=== PATIENT | female | born 1960 | race Caucasian/White ===

== ENCOUNTER → 2019-07-27 | Outpatient (CLI) | payer OTHER ==
[~2019-07-27] MED LIST: ATOR40TA PO; BACL10TA PO; FURO40TA4 PO; PNT40TEC PO; POTA10CA43 PO; SPIR50TA27 PO
--- NOTE | 2019-07-27 11:18 | Diagnostic Imaging Report ---
PROCEDURE: US abdomen complete. TECHNIQUE: Multiple real-time grayscale images were obtained over the abdomen in various projections. INDICATION: Right upper quadrant pain. FINDINGS: The liver is enlarged at 20 cm. No discrete liver mass is identified. The portal vein is patent and shows normal direction of flow. The gallbladder is without stones or sludge. No wall thickening or biliary duct dilatation is identified. The pancreas was obscured by bowel gas. The spleen is normal in size at 9.5 cm. Mid abdominal aorta is normal in caliber. The proximal and distal aorta were obscured by bowel gas. Kidneys are without evidence of calculi. Bilateral renal pelves are mildly prominent bilaterally. No greg hydronephrosis is seen. There is no ascites. IMPRESSION: 1. Hepatomegaly. 2. No evidence of cholelithiasis or acute cholecystitis. 3. Mildly prominent renal pelves bilaterally without evidence of hydronephrosis. No calculi are seen. Dictated by: Dictated on workstation # [id number]
== END ==
LOC: RAD 08:18
PROVIDERS: ATTEND Urology
DX: R16.0 Hepatomegaly, not elsewhere classified (principal); R10.11 Right upper quadrant pain
CPT/HCPCS: 76700

== ENCOUNTER 2019-12-04 05:31 | Outpatient (CLI) | payer OTHER ==
[~2019-12-04] VITALS: Ht 162.6 cm; Wt 92.0 kg
[2019-12-04] MEDS ORDERED: NAPR-1070 PO (12:09)
[2019-12-04] MEDS ORDERED: METF500T19 PO (12:09)
[2019-12-04] MEDS ORDERED: CYAN250010 PO (12:09)
[2019-12-04] MEDS ORDERED: FLT11013 IH (12:09)
[2019-12-04] MEDS ORDERED: SPIR50TA4 PO (12:09)
[2019-12-04] MEDS ORDERED: METF-478 PO (12:09)
[2019-12-04] MEDS ORDERED: FURO40TA4 PO (12:09)
[2019-12-04] MEDS ORDERED: LANS15TA10 PO (12:09)
[2019-12-04] MEDS ORDERED: ATOR40TA70 PO (12:09)
== END 2019-12-04 12:12 | disposition home or self-care (01) ==
LOC: PREOP 05:31
PROVIDERS: ATTEND Internal Medicine
DX: Z01.818 Encounter for other preprocedural examination (principal)

== ENCOUNTER 2019-12-29 08:09 | Day surgery (SDC) | payer OTHER ==
--- NOTE | 2019-11-17 06:41 | HISTORY AND PHYSICAL ---
DATE OF SERVICE: COLONOSCOPY HISTORY AND PHYSICAL HISTORY: The patient a 59-year-old white female referred for her first screening colonoscopy by [facility] [place]. She is deemed to be of average risk as she is not aware of any family history for colon cancer or colon polyps. She is not aware of any bright red blood per rectum, melena or change in bowel habit. She denies any problems with abdominal pain. PAST MEDICAL HISTORY: Significant for hypertension and type 2 diabetes mellitus as well as gastroesophageal reflux and asthma, sleep apnea. MEDICATIONS ON ADMISSION: Include spironolactone 50 mg daily, furosemide 40 mg daily, atorvastatin 40 mg daily, metformin ER 500 mg in the morning and 1000 mg in the evening, Anaprox 550 mg b.i.d., lansoprazole 15 mg twice a day, vitamin B12 250 mcg daily, Flovent 110 mcg inhaler 2 puffs b.i.d. ALLERGIES: SHE REPORTS AN ALLERGY TO MORPHINE, WHICH CAUSES URTICARIA AND ITCHING. PAST SURGICAL HISTORY: She has had three C-sections in 1981, 1988 and 1995, underwent total abdominal hysterectomy and bilateral salpingo-oophorectomy for benign reasons in 1997, had thumb arthroplasty left in 2007 and right in 2014. She underwent a cardiac catheterization in 09/2008 that did not reveal any flow-limiting disease. FAMILY HISTORY: Father at the age of 67 of complications of diabetes and coronary artery disease and renal failure. Mother of complications of myelodysplastic anemia at the age of 50. She has one brother living at age of 45 who suddenly of either PE or CA. One sister of complications from pneumonia. She has seven daughters who are all alive and well and a supportive . 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 REVIEW OF SYSTEMS: CONSTITUTIONAL: She denies night sweats, chills, fever. She has lost over 40 pounds over the past year or 2 for treatment of underlying obesity through portion control. GASTROINTESTINAL: As noted in the HPI. CARDIOVASCULAR: She had reportedly unremarkable catheterization in 2007. Denies chest pain, syncope or presyncope. PULMONARY: She reports her asthma has been under good control. No cough, wheezing, chest pain or dyspnea on exertion. PHYSICAL EXAMINATION: GENERAL: Reveals a well-appearing white female in no acute distress. VITAL SIGNS: Weight 213.6 pounds. Initial blood pressure 150/82 when repeated 140/78. HEENT: Unremarkable. Mallampati 2 oropharyngeal configuration. NECK: Reveals no JVD, adenopathy or bruits. CHEST: clear to auscultation CARDIOVASCULAR: Reveals a regular rate and rhythm with a soft 1 to 2/6 systolic ejection murmur heard best at second intercostal space without evidence for pulsus, parvus or tardus. No S3 or S4 noted. ABDOMEN: Soft, supple without mass, organomegaly or tenderness. No bruits are noted. No evidence for abdominal aortic aneurysm is noted. EXTREMITIES: Reveal no cyanosis, clubbing or edema. ASSESSMENT AND PLAN: The patient is set up for her first screening colonoscopy on 12/08/2019. Prep instructions with the Suprep kit were given and questions were answered. I thank you for the referral of this pleasant lady. Job ID: [id number] DocumentID: [id number] Dictated Date: 11/15/2019 17:29:08 Demurrage Agent Date: 11/15/2019 17:57:06 Dictated By: MARIANA VEGA MD
--- NOTE | 2019-12-27 17:47 | HISTORY AND PHYSICAL ---
DATE OF SERVICE: ADDENDUM Addendum to colonoscopy history and physical. HISTORY OF PRESENT ILLNESS: The patient is a 59-year-old white female referred from [facility] at [place] for her first screening colonoscopy. She was originally seen on 11/15 and was set up for later in November, but had to reschedule. There have been no changes in her health history. She feels well, has had no surgeries or medical procedures in the interim. PHYSICAL EXAMINATION: VITAL SIGNS: Blood pressure 140/82. HEENT: Unchanged. Mallampati 2 oropharyngeal configuration. CHEST: Clear. CARDIOVASCULAR: Reveals regular rate and rhythm with a soft 1 to 2/6 systolic ejection murmur heard best at second intercostal space unchanged without S3 or S4. Pulses parvus or tardus. EXTREMITIES: Reveal no cyanosis, clubbing or edema. ASSESSMENT AND PLAN: The patient is being set up. The patient was rescheduled for colonoscopy for screening purposes on 12/30/2019. Prep instructions and Suprep kit were given and questions were answered. Job ID: [id number] DocumentID: [id number] Dictated Date: 12/27/2019 16:01:28 Bonbon Dipper Date: 12/27/2019 17:46:47 Dictated By: MARIANA VEGA MD
[~2019-12-29] VITALS: Ht 162.6 cm; Wt 92.0 kg
[2019-12-29] VITALS (15 sets, daily range): BP systolic 113–150; BP diastolic 56–78
[~2019-12-29 08:09] MED LIST changes: +ATOR40TA70 PO; +CYAN250010 PO; +FLT11013 IH; +LANS15TA10 PO; +METF-478 PO; +METF500T19 PO; +NAPR-1070 PO; +SPIR50TA4 PO
[2019-12-29] MEDS ORDERED: D5 LR IV SOLUTION 1,000 ML IV STA (08:14)
[2019-12-29] MEDS ORDERED: LIDOCAINE JELLY 2% 6 ML SYRINGE MM PRN (08:15)
[2019-12-29] MEDS ORDERED: fentaNYL INJECTION 100 MCG/2 ML AMP IVP ONE (08:15)
[2019-12-29] MEDS ORDERED: D5 LR IV SOLUTION 1,000 ML IV ONE (08:16)
[2019-12-29] MEDS ORDERED: fentaNYL INJECTION 100 MCG/2 ML AMP ONE (09:16)
[2019-12-29] MEDS ORDERED: MIDAZOLAM 5 MG/5 ML (VERSED) VIAL ONE (09:16)
[2019-12-29] MEDS ORDERED: LIDOCAINE JELLY 2% 6 ML SYRINGE ONE (09:16)
[2019-12-29] MEDS: MIDAZOLAM 5 MG/5 ML (VERSED) VIAL IV PRN ×2 (09:25→09:30)
--- NOTE | 2019-12-29 10:53 | Pre-Op Note & Conscious Sedat ---
Pre-Operative Progress Note H&P Reviewed The H&P was reviewed, patient examined and no changes noted. Date H&P Reviewed: Dec 29, 2019 Time H&P Reviewed: 08:45 Conscious Sedation Pre-Proced ASA Score 2 For ASA 3 and 4: Consider anesthesia and medical clearance. Also, for patients with a history of failed moderate sedation consider anesthesia. Airway Lungs Heart ASA score ASA 1: a normal healthy patient ASA 2: a patient with a mild systemic disease (mid diabetes, controlled hypertension, obesity ASA 3: a patient with a severe systemic disease that limits activity (angina, COPD, prior Myocardial infarction) ASA 4: a patient with an incapacitating disease that is a constant threat to life (CHF, renal failure) ASA 5: a moribund patient not expected to survive 24 hrs. (ruptured aneurysm) ASA 6: a declared brain- patient whose organs are being harvested. For emergent operations, add the letter E after the classification Mallampati Classification Grade 2 Sedation Plan Analgesia, Amnesia, Plan communicated to team members, Discussed options with patient/fam, Discussed risks with patient/fam The patient is an appropriate candidate to undergo the planned procedure, sedation, and anesthesia. The patient immediately re-assessed prior to indication. MARIANA VEGA MD Dec 29, 2019 10:53
--- NOTE | 2019-12-29 14:49 | OPERATIVE REPORT ---
DATE OF SERVICE: COLONOSCOPY SUMMARY INDICATION FOR THE PROCEDURE: Screening colonoscopy. DESCRIPTION OF PROCEDURE: The patient was placed in the left lateral decubitus position. Prior to undergoing colonoscopy, digital rectal evaluation was performed. Anal sphincter tone was normal and the perianal reflexes were intact. No abnormalities, no digital inspection of anal canal or distal rectal vault. The colonoscope was then inserted into the rectum and under direct visualization advanced to the cecum. The cecum was identified by identification of the ileocecal valve and cecal strap. Careful inspection was made as colonoscope withdrawn. Quality of prep was fair. FINDINGS: No evidence for internal or external hemorrhoids and the rectum was unremarkable. Several small sigmoid diverticula were present without evidence for diverticulitis. The descending colon and splenic flexure were unremarkable. Present in the distal transverse colon was a pedunculated 8 mm polyp on a short stalk. No evidence for mucosal ulceration was noted. The polyp was snared and I retrieved via basket and submitted for histopathology. A minor amount of bleeding, limited to 1 to 2ml, was noted post-procedure with cessation noted during visualization after likely less than a minute. The remainder of the transverse colon was unremarkable. Present at the hepatic flexure was a sessile polyp was biopsied and ablated and submitted for histopathology. The ascending colon and cecum were unremarkable. ASSESSMENT: Two polyps were removed today. With the patient's present discussed the importance of avoiding aspirin and nonsteroidal medication for the next week to allow for polyp site healing and reduce bleeding risk. We will await histopathology report, but will likely be abdicating a 1-year surveillance colonoscopy interval. A few small sigmoid diverticula were present and no other abnormalities noted on today's procedure. Job ID: [id number] DocumentID: [id number] Dictated Date: 12/29/2019 11:12:44 Flexographic Press Helper Date: 12/29/2019 14:48:45 Dictated By: MARIANA VEGA MD [facility]
== END 2019-12-29 11:10 | disposition home or self-care (01) ==
LOC: ENDO 08:09
PROVIDERS: ATTEND Internal Medicine
DX: Z12.11 Encounter for screening for malignant neoplasm of colon (principal); D12.3 Benign neoplasm of transverse colon; K63.5 Polyp of colon; K57.30 Diverticulosis of large intestine without perforation or abscess without bleeding; I10 Essential (primary) hypertension; E11.9 Type 2 diabetes mellitus without complications; K21.9 Gastro-esophageal reflux disease without esophagitis; J45.909 Unspecified asthma, uncomplicated; G47.30 Sleep apnea, unspecified; Z79.84 Long term (current) use of oral hypoglycemic drugs; Z79.899 Other long term (current) drug therapy; Z88.5 Allergy status to narcotic agent

== ENCOUNTER 2020-08-18 05:20 | Emergency (ER) | payer OTHER ==
[~2020-08-18 05:20] MED LIST changes: +METF-865 PO; -METF500T19 PO
[2020-08-18] MEDS ORDERED: KETOROLAC 60 MG/2 ML VIAL IM ONE (06:00)
[2020-08-18] MEDS ORDERED: methylPREDNISolone 125 MG (Solu-MEDROL) VIAL IM ONE (06:00)
[2020-08-18] MEDS ORDERED: ORPHENADRINE 60 MG/2 ML (NORFLEX) AMP (ED ONLY) IM ONE (06:00)
[2020-08-18] MEDS ORDERED: ACETAMINOPHEN 500 MG TAB (TYLENOL) PO ONE (06:00)
--- NOTE | 2020-08-18 06:02 | ED Back Pain ---
General Chief Complaint: Back Problems Stated Complaint: LEFT SIDE LOWER BACK PAIN Nursing Triage Note: Pt complaining of left lower back pain that has been intermittent for a few days but is now constant Nursing Sepsis Screen: No Definite Risk History of Present Illness Date Seen by Provider: Aug 18, 2020 Time Seen by Provider: 05:45 Initial Comments The patient is a 60-year-old female with a history of hyperlipidemia and plv-jchiomc-ldvrcimpc diabetes who presents for evaluation of 3 days of atraumatic left-sided low lumbar back discomfort with radiation down the left leg. Discomfort is worse with moving about and better with rest. No specific injury that the patient can recollect. No associated fevers, nausea or vomiting, abdominal pain of any kind, flank pain, dysuria or hematuria, changes in bowel habits, loss of bowel or bladder control, saddle anesthesia, new lower extremity weakness, numbness, tingling, new urinary retention, use of intravenous illegal drugs. Allergies and Home Medications Allergies Coded Allergies: morphine (Verified Allergy, Unknown, 12/29/19) Home Medications Atorvastatin Calcium 40 Mg Tablet, 40 MG PO HS, (Reported) Cyanocobalamin (Vitamin B-12) 2,500 Mcg Tablet, 2,500 MCG PO DAILY, (Reported) Fluticasone Propionate 1 Ea Aero, 2 PUFF IH BID, (Reported) Furosemide 40 Mg Tablet, 40 MG PO DAILY, (Reported) Lansoprazole 15 Mg Tab.rap.dr, 15 MG PO BID, (Reported) Metformin HCl 500 Mg Tab.er.24, 1,000 MG PO HS, (Reported) take 2 (500mg) tabs Metformin HCl 500 Mg Tab.er.24h, 500 MG PO DAILY, (Reported) Spironolactone 50 Mg Tablet, 50 MG PO DAILY, (Reported) Patient Home Medication List Home Medication List Reviewed: Yes Review of Systems Constitutional: see HPI All Other Systems Reviewed Negative Unless Noted: Yes Past Azcwnkz-Ugcfho-Iabsgy Hx Past Med/Social Hx: Reviewed Nursing Past Med/Soc Hx Patient Social History Alcohol Use: Rarely Uses Recreational Drug Use: No Smoking Status: Never a Smoker Recent Foreign Travel: No Contact w/Someone Who Travel: No Recent Infectious Disease Expo: No Recent Hopitalizations: No Physical Abuse: No Sexual Abuse: No Immunizations Up To Date Date of Influenza Vaccine: Aug 08, 2019 Seasonal Allergies Seasonal Allergies: No Past Medical History Surgeries: Yes (bilat CTR, c/s x3, bilat thumb sx) Hysterectomy, Oophorectomy Respiratory: Yes Asthma, Sleep Apnea Currently Using CPAP: Yes Cardiac: Yes Hypertension 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 oz. kg; 34.79 BMI Method:Stated General Appearance: No Apparent Distress This is an older female appearing nontoxic and in no acute distress. Head is normocephalic and atraumatic. Neck is supple and nontender. Oropharynx is moist. Lungs are clear to auscultation at all stations. There is a normal S1 and S2 without rubs or gallops and capillary refill is appropriate, less than 2 seconds globally. Abdomen is soft, nontender and nondistended. Skin is warm and dry without cyanosis, clubbing or edema. Psychiatrically, the patient given straights appropriate mood and affect and is alert. Examination of the back reveals no erythema, warmth, swelling, step-offs or deformities. There is no significant reproducible tenderness to the left lower lumbar paraspinal or midline back or elsewhere straight leg raise is positive on the right. Bilateral lower extremities are neurovascularly intact distally with strength 5 out of 5, sensation intact to light touch in all nerve distributions, DP and PT pulses 2+, capillary refill less than 2 seconds, feet warm and well-perfused. No joint irritability with ranging of any joints of the bilateral lower extremities. No erythema, warmth or swelling of the bilateral lower extremities, including the calves. Progress/Results/Core Measures Results/Orders My Orders Orders - NATALIA MACEDO MD Orphenadrine Inj (Ed Only) (Norflex Inje (08/18/20 06:00) Ketorolac Injection (Toradol Injection) (08/18/20 06:00) Methylprednisolone Sod Succ (Solu-Medrol (08/18/20 06:00) Acetaminophen Tablet (Tylenol Tablet) (08/18/20 06:00) Vital Signs/I&O 08/18/20 05:27 Temp 36.3 Pulse 78 Resp 16 B/P (MAP) 169/73 (105) Pulse Ox 98 O2 Delivery Room Air Blood Pressure Mean: 105 Progress Progress Note : Time: 06:00 Progress Note No red flags today for acute on chronic atraumatic low back pain with radiation down the left leg. We'll administer medication as per nursing flow sheet and will plan for discharge home with anti-inflammatories and analgesics to follow up very closely with primary care. Patient understands and agrees. Departure Impression Primary Impression: Low back pain Disposition: HOME, SELF-CARE Condition: Improved Departure-Patient Inst. Referrals: NO,LOCAL PHYSICIAN (PCP) Primary Care Physician BINH ZAVALETA (Family) Primary Care Physician Patient Instructions: Low Back Pain in Adults Add. Discharge Instructions: Follow-up very closely with your primary care provider in the next 2-4 days for reevaluation of your symptoms and a discussion of next best steps in care. Use the medication as prescribed, along with your home cyclobenzaprine and a 500 mg Tylenol every 6 hours as needed. Return to the emergency department right away with worsening symptoms of any kind or with any other new symptoms of concern. Scripts Lidocaine HCl (Aspercreme Lidocaine) 73 Ml Liqd.vidhya 1 APPLIC TP TID for Pain, #1 EA Prov: NATALIA MACEDO MD 08/18/20 Methylprednisolone (Methylprednisolone Dose Pack) 4 Mg Tab.ds.pk 4 MG PO UD for 6 Days, #21 PKG PER DOSE PACK INSTRUCTIONS Prov: NATALIA MACEDO MD 08/18/20 Ibuprofen (Ibuprofen) 800 Mg Tablet 800 MG PO Q8H PRN for PAIN, #30 TAB 0 Refills Prov: NATALIA MACEDO MD 08/18/20 NATALIA MACEDO MD Aug 18, 2020 06:02
[2020-08-18] MEDS ORDERED: IBUP-1780 PO (06:05)
[2020-08-18] MEDS ORDERED: METH4TAB10 PO (06:05)
[2020-08-18] MEDS ORDERED: LIDO73LI TP (06:05)
[2020-08-18 06:08] VITALS: BP 169/73
== END 2020-08-18 06:08 | disposition home or self-care (01) ==
LOC: EDUNIT# 05:20 → ER FS 05:24
DX: M54.5 Low back pain (principal); I10 Essential (primary) hypertension; E11.9 Type 2 diabetes mellitus without complications; K21.9 Gastro-esophageal reflux disease without esophagitis; Z79.84 Long term (current) use of oral hypoglycemic drugs; Z88.5 Allergy status to narcotic agent
CPT/HCPCS: 99284

== ENCOUNTER 2020-10-16 08:20 | Outpatient (RCR) | payer OTHER ==
[~2020-10-16 08:20] MED LIST changes: +IBUP-1780 PO; +LIDO73LI TP; +METH4TAB10 PO
== END 2020-12-23 | disposition home or self-care (01) ==
PROVIDERS: ATTEND Orthopaedic Surgery
DX: T84.84XA Pain due to internal orthopedic prosthetic devices, implants and grafts, initial encounter (principal); M54.31 Sciatica, right side

== ENCOUNTER 2020-12-20 05:37 | Outpatient (RCR) | payer OTHER ==
[~2020-12-20] VITALS: Ht 162.6 cm; Wt 95.8 kg
== END 2020-12-25 10:14 | disposition home or self-care (01) ==
LOC: PREOP 05:37
PROVIDERS: ATTEND Internal Medicine
DX: Z01.818 Encounter for other preprocedural examination (principal); Z86.010 Personal history of colon polyps

== ENCOUNTER 2020-12-27 07:33 | Day surgery (SDC) | payer OTHER ==
--- NOTE | 2020-12-16 21:26 | HISTORY AND PHYSICAL ---
DATE OF SERVICE: COLONOSCOPY HISTORY AND PHYSICAL HISTORY OF PRESENT ILLNESS: The patient is seen for polyp follow up for surveillance colonoscopy. One year ago, on her first screening colonoscopy, she was noted to have a tubular adenoma noted in the transverse colon, it was snared and removed in its entirety. For this reason, she is undergoing followup. She also had a large hyperplastic polyp with indistinct borders removed from the hepatic flexure. She reports that she has developed some constipation over the last month that is a little unusual for her. This followed COVID infection. She does have some abdominal bloating and does have relief of her symptoms post-bowel evacuation. There have been no medical changes. She reports that she has had chemistries done that she thinks that she has had her thyroid checked as well and they reportedly unremarkable. She reports that she feels that she is back to baseline, has been out of quarantine for a month and half. Still has a little bit of fatigue by the end of the day and still has a little more dyspnea on exertion at baseline, but no dyspnea at rest or chest pain. She has had no night sweats, chills or fever. She has noted no bright red blood or melena. There have been no other changes in her health history. PAST SURGICAL HISTORY: Significant for three sections in , and 96. She underwent total abdominal hysterectomy and bilateral salpingo-oophorectomy for reported benign reasons in 1997, had thumb arthroplasty in 2007 as well as 2014 and had undergone cardiac catheterization in 2007 for chest pain that did not reveal any significant blockage. FAMILY HISTORY: Father at age of 67 of complications of diabetes and coronary artery disease. Mother of complications of myelodysplastic anemia at the age of 50 and she has one living brother at the age of 45 who suddenly of either PE or an [place]. She has had one sister who of complications of pneumonia in her 40s. She has seven daughters, who are alive and well. 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 REVIEW OF SYSTEMS: CONSTITUTIONAL: She denies night sweats, chills, fever. Weight has been stable. She is down 2.6 pounds compared to one year ago by our office scales. CARDIOVASCULAR: She denies syncope, presyncope, orthopnea, PND or pedal edema. PULMONARY: She still has mild increase in dyspnea on exertion over baseline. No dyspnea at rest. No chest pain, cough or wheezing. GASTROINTESTINAL: As noted in the HPI. PHYSICAL EXAMINATION: GENERAL: Reveals a pleasant white female, appears to be in no acute distress. VITAL SIGNS: Blood pressure 120/78, weight 211 pounds. HEENT: Unremarkable. NECK: Revealed no JVD, adenopathy or bruits. CHEST: Clear to auscultation. CARDIOVASCULAR: Revealed a regular rate and rhythm without murmur, S3 or S4. EXTREMITIES: Reveal no cyanosis, clubbing or edema. ABDOMEN: Soft, supple without mass, organomegaly or tenderness. Bowel sounds are positive. ASSESSMENT: The patient undergoing surveillance colonoscopy for followup of colonic polyps. Details As noted in the HPI. Prep instructions and Suprep kit were given and questions were answered. The patient's electronic medical record was reviewed. I thank you for the referral of this pleasant lady. Job ID: [id number] DocumentID: [id number] Dictated Date: 12/16/2020 20:48:38 Fabrication Technician Date: 12/16/2020 21:26:02 Dictated By: MARIANA VEGA MD
[~2020-12-27] VITALS: Ht 162.6 cm; Wt 95.8 kg
[2020-12-27] MEDS ORDERED: LACTATED RINGERS 1,000 ML IV STA (07:35)
[2020-12-27] MEDS ORDERED: LACTATED RINGERS 1,000 ML IV ONE (07:37)
[2020-12-27] MEDS ORDERED: LIDOCAINE JELLY 2% 6 ML SYRINGE MM PRN (07:45)
[2020-12-27] MEDS ORDERED: PROPOFOL INJECTION 50 ML IV ONE (07:51)
[2020-12-27] MEDS ORDERED: MIDAZOLAM 2 MG/2 ML (VERSED) VIAL ONE (07:51)
[2020-12-27 07:56] VITALS: BP 151/89
[2020-12-27] MEDS ORDERED: LIDOCAINE JELLY 2% 6 ML SYRINGE ONE (08:16)
[2020-12-27] MEDS ORDERED: proPOfol 200 MG/20 ML (DIPRIVAN) VIAL IV ONE (08:48)
[2020-12-27 09:00] VITALS: BP 131/77
[2020-12-27 09:05] VITALS: BP 130/61
[2020-12-27 09:10] VITALS: BP 130/61
--- NOTE | 2020-12-27 09:14 | Pre-Op Note & Conscious Sedat ---
Pre-Operative Progress Note H&P Reviewed The H&P was reviewed, patient examined and no changes noted. Date H&P Reviewed: Dec 27, 2020 Time H&P Reviewed: 08:00 Conscious Sedation Pre-Proced ASA Score 2 For ASA 3 and 4: Consider anesthesia and medical clearance. Also, for patients with a history of failed moderate sedation consider anesthesia. Airway Lungs Heart ASA score ASA 1: a normal healthy patient ASA 2: a patient with a mild systemic disease (mid diabetes, controlled hypertension, obesity ASA 3: a patient with a severe systemic disease that limits activity (angina, COPD, prior Myocardial infarction) ASA 4: a patient with an incapacitating disease that is a constant threat to life (CHF, renal failure) ASA 5: a moribund patient not expected to survive 24 hrs. (ruptured aneurysm) ASA 6: a declared brain- patient whose organs are being harvested. For emergent operations, add the letter E after the classification Mallampati Classification Grade 2 Sedation Plan Analgesia, Amnesia, Plan communicated to team members, Discussed options with patient/fam, Discussed risks with patient/fam The patient is an appropriate candidate to undergo the planned procedure, sedation, and anesthesia. The patient immediately re-assessed prior to indication. MARIANA VEGA MD Dec 27, 2020 09:14
[2020-12-27 09:30] VITALS: BP 132/71
--- NOTE | 2020-12-27 09:32 | Anesthesia-General Post-Op ---
MAC Patient Condition Mental Status/LOC: Same as Preop Cardiovascular: Satisfactory Nausea/Vomiting: Absent Respiratory: Satisfactory Pain: Controlled Complications: Absent Post Op Complications Complications None Follow Up Care/Instructions Patient Instructions None needed. Anesthesiology Discharge Order Discharge Order Patient is doing well, no complaints, stable vital signs, no apparent adverse anesthesia problems. No complications reported per nursing. ARABELLA KIRK CRNA Dec 27, 2020 09:32
[2020-12-27 09:35] VITALS: BP 132/71
--- NOTE | 2020-12-27 13:42 | OPERATIVE REPORT ---
DATE OF SERVICE: 12/27/2020 COLONOSCOPY SUMMARY INDICATION FOR THE PROCEDURE: History of colon polyps, family history of colon cancer. DESCRIPTION OF PROCEDURE: The patient was placed in the left lateral decubitus position. Prior to undergoing colonoscopy, digital rectal evaluation was performed. Anal sphincter tone was normal and the perianal reflex is intact. No abnormalities were noted on digital inspection of anal canal or distal rectal vault. The colonoscope was then inserted into the rectum and under direct visualization advanced to cecum. The cecum was identified by identification of ileocecal valve and cecal strap. Photographic documentation was obtained. The patient was admitted, procedure was done under Diprivan anesthesia. Quality of prep was fair. FINDINGS: There was no evidence for internal or external hemorrhoids and the rectum was unremarkable. Present in the distal sigmoid colon was a diminutive 4 mm sessile hyperplastic-appearing polyp. It was biopsied and ablated and submitted for histopathology. The remainder of the sigmoid colon was unremarkable. The descending colon and splenic flexure were unremarkable. Present in the distal transverse colon was a diminutive 4 mm sessile polyp. It was photographed and biopsied and ablated with no subsequent blood loss. The remainder of the transverse colon, hepatic flexure, ascending colon and cecum were unremarkable. ASSESSMENT AND PLAN: Two diminutive polyps were removed, one from the distal transverse and the other from the distal sigmoid colon with an otherwise normal colonoscopy to the cecum. Considering the patient's past polyp history and family history, we will advocate repeat surveillance colonoscopy in 3 years provided that there are no surprises on histopathology report. I thank you for the referral. Job ID: [id number] DocumentID: [id number] Dictated Date: 12/27/2020 09:18:53 Media Services Director Date: 12/27/2020 13:40:00 Dictated By: MARIANA VEGA MD [facility]
== END 2020-12-27 09:36 | disposition home or self-care (01) ==
LOC: ENDO 07:33
PROVIDERS: ATTEND Internal Medicine
DX: K63.5 Polyp of colon (principal); I10 Essential (primary) hypertension; K21.9 Gastro-esophageal reflux disease without esophagitis; E11.9 Type 2 diabetes mellitus without complications; J45.909 Unspecified asthma, uncomplicated; Z79.899 Other long term (current) drug therapy; Z88.5 Allergy status to narcotic agent; Z90.710 Acquired absence of both cervix and uterus; Z86.010 Personal history of colon polyps; Z83.3 Family history of diabetes mellitus; Z80.0 Family history of malignant neoplasm of digestive organs
CPT/HCPCS: 82962

== ENCOUNTER → 2022-03-17 | Outpatient (CLI) | payer OTHER ==
[~2022-03-17] MED LIST changes: +KETO10TA PO; +ONDA4TAB11 PO; +OXYC1TAB11 PO; +VALA10004 PO
--- NOTE | 2022-03-17 10:53 | Diagnostic Imaging Report ---
PROCEDURE: CT abdomen and pelvis without contrast. TECHNIQUE: Multiple contiguous axial images were obtained through the abdomen and pelvis without the use of intravenous contrast. Auto Exposure Controls were utilized during the CT exam to meet ALARA standards for radiation dose reduction. INDICATION: Right flank pain. COMPARISON: None. FINDINGS: There are prominent UPJs bilaterally. There is a nonobstructive 4 mm stone in the lower aspect of the left kidney. No ureteral stones or obstructive hydronephrosis is seen. Urinary bladder is normal. The lung bases are clear. The gallbladder, additional solid organs, vascular structures and bowel normal. There is no free air or free fluid. No inflammation seen. The uterus is surgically absent. Osseous structures are age appropriate. IMPRESSION: 1. Bilateral prominent UPJs without obstructive hydronephrosis. 2. There are nonobstructive stone inferior pole left kidney. 3. Surgically absent uterus. Dictated by: Dictated on workstation # [id number]
== END ==
LOC: RAD 10:00
PROVIDERS: ATTEND Urology
DX: N20.0 Calculus of kidney (principal); Z90.710 Acquired absence of both cervix and uterus
CPT/HCPCS: 74176

== ENCOUNTER 2022-03-18 07:56 | Emergency (ER) | payer OTHER ==
[~2022-03-18] VITALS: Ht 162 cm; Wt 95.0 kg
[~2022-03-18 07:56] MED LIST changes: -KETO10TA PO; -ONDA4TAB11 PO; -OXYC1TAB11 PO; -VALA10004 PO
[2022-03-18 08:18] LABS: MEAN CORPUSCULAR VOLUME 85 fL (80-99)
[2022-03-18] MEDS ORDERED: KETOROLAC 30 MG/ML VIAL IVP STA (08:18)
[2022-03-18 08:21] LABS: BASOPHILS % (AUTO) 1 % (0-10); EOSINOPHILS # (AUTO) 0.1 10^3/uL (0.0-0.3); EOSINOPHILS % (AUTO) 2 % (0-10); HEMATOCRIT 41 % (35-52); HEMOGLOBIN 13.1 g/dL (11.5-16.0); LYMPHOCYTES # (AUTO) 1.8 10^3/uL (1.0-4.0); LYMPHOCYTES % (AUTO) 29 % (12-44); MEAN CORPUSCULAR HEMOGLOBIN 27 pg (25-34); MEAN CORPUSCULAR HGB CONC 32 g/dL (32-36); MEAN PLATELET VOLUME 12.7 fL (9.0-12.2); MONOCYTES # (AUTO) 0.5 10^3/uL (0.0-1.0); MONOCYTES % (AUTO) 8 % (0-12); NEUTROPHILS # (AUTO) 3.6 10^3/uL (1.8-7.8); NEUTROPHILS % (AUTO) 60 % (42-75); PLATELET COUNT 173 10^3/uL (130-400); SMEAR SCAN COMMENT YES
[2022-03-18 08:29] LABS: ALBUMIN 4.7 GM/DL (3.2-4.5); CHLORIDE 105 MMOL/L (98-107); POTASSIUM 4.6 MMOL/L (3.6-5.0); SODIUM 142 MMOL/L (135-145)
[2022-03-18 08:30] LABS: AMYLASE 52 U/L (25-125); CALCIUM 10.1 MG/DL (8.5-10.1)
[2022-03-18] MEDS ORDERED: ONDANSETRON 4 MG/2 ML (SDV) Z0FRAN IVP ONE (08:30)
[2022-03-18] MEDS ORDERED: LACTATED RINGERS 1,000 ML IV ONE (08:30)
--- NOTE | 2022-03-18 08:30 | ED Abdominal Pain ---
General Chief Complaint: Abdominal/GI Problems Stated Complaint: RUQ PAIN Nursing Triage Note: PT AMB TO RM 6. PT CO OF R UPPER ABD PAIN SINCE WEDNESDAY , PT STATES HAD NON CONTRAST CT YESTERDAY THINKING IT WAS A KIDNEY STONE BUT NO KIDNEY STONE SEEN. PT HAS NAUSEA AT TIMES, RATES PAIN 8/10 SEVERE. Source of Information: Patient History of Present Illness Date Seen by Provider: March 18, 2022 Time Seen by Provider: 08:10 Initial Comments PT ARRIVES VIA POV FROM HOME C/O RUQ PAIN RADIATING TO RIGHT FLANK SINCE 03/15/22 AROUND 1900 PAIN BEGAN AFTER EATING MOTHER'S DAY DINNER PAIN IS CONSTANT, VARIES IN INTENSITY NOTHING WORSENS OR IMPROVES PAIN + NAUSEA, NO VOMITING. 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 FINDINGS: There are prominent UPJs bilaterally. There is a nonobstructive 4 mm stone in the lower aspect of the left kidney. No ureteral stones or obstructive hydronephrosis is seen. Urinary bladder is normal. The lung bases are clear. The gallbladder, additional solid organs, vascular structures and bowel normal. There is no free air or free fluid. No inflammation seen. The uterus is surgically absent. Osseous structures are age appropriate. IMPRESSION: 1. Bilateral prominent UPJs without obstructive hydronephrosis. 2. There are nonobstructive stone inferior pole left kidney. 3. Surgically absent uterus. NO HISTORY OF SIMILAR STATES PAIN IS EXCRUCIATING NO RELIEF WITH IBUPROFEN OR MUSCLE RELAXANT LAST PM. PT HAS HAD PRIOR HYSTERECTOMY/BSO AND . Allergies and Home Medications Allergies Coded Allergies: morphine (Verified Allergy, Unknown, 12/29/19) Patient Home Medication List Atorvastatin Calcium (Atorvastatin Calcium) 40 Mg Tablet, 40 MG PO HS, (Reported) Entered as Reported by: PETER SANCHEZ on 12/04/19 1209 Cyanocobalamin (Vitamin B-12) (Vitamin B12) 2,500 Mcg Tablet, 2,500 MCG PO DAILY, (Reported) Entered as Reported by: PETER SANCHEZ on 12/04/19 1209 Fluticasone Propionate (Flovent Hfa 110 mcg) 1 Ea Aero, 2 PUFF IH BID, (Reported) Entered as Reported by: PETER SANCHEZ on 12/04/19 1209 Lansoprazole (Lansoprazole) 15 Mg Tab.rap.dr, 15 MG PO BID, (Reported) Entered as Reported by: PETER SANCHEZ on 12/04/19 120 Lidocaine HCl (Aspercreme Lidocaine) 73 Ml Liqd.vidhya, 1 APPLIC TP TID Prescribed by: NATALIA MACEDO on 08/18/20 0605 Metformin HCl (Metformin HCl ER) 500 Mg Tab.er.24, 1,000 MG PO HS, (Reported) Entered as Reported by: PETER SANCHEZ on 12/04/19 120 Metformin HCl (Metformin HCl ER) 500 Mg Tab.er.24h, 500 MG PO DAILY, (Reported) Entered as Reported by: PETER SANCHEZ on 12/04/19 120 Spironolactone (Spironolactone) 50 Mg Tablet, 50 MG PO DAILY, (Reported) Entered as Reported by: PETER SANCHEZ on 12/04/19 120 Review of Systems Review of Systems Constitutional: no symptoms reported Respiratory: No Symptoms Reported Cardiovascular: No Symptoms Reported Gastrointestinal: See HPI, Abdominal Pain; Denies Constipated, Denies Diarrhea; Nausea; Denies Vomiting Genitourinary: No Symptoms Reported Musculoskeletal: see HPI, back pain Skin: no symptoms reported Psychiatric/Neurological: No Symptoms Reported Endocrine: No Symptoms Reported Hematologic/Lymphatic: No Symptoms Reported Past Aswqqxv-Qygkpk-Tmwior Hx Patient Social History Tobacco Use?: No Substance use?: No Alcohol Use?: No Immunizations Up To Date Tetanus Booster (TDap): Unknown First/Initial COVID19 Vaccinat: 2019 Second COVID19 Vaccination Paresh: 2019 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 Seasonal Allergies Seasonal Allergies: No Past Medical History Surgery/Hospitalization HX: X4, HYSTERECTOMY, BILAT CARPAL TUNNEL, L TKR Surgeries: Yes (bilat CTR, c/s x3, bilat thumb sx;COLONOSCOPY/POLYPECTOMY) Section, Hysterectomy, Joint Replacement, Oophorectomy, Orthopedic Respiratory: Yes Asthma, Sleep Apnea Currently Using CPAP: Yes Currently Using BIPAP: No Cardiac: Yes Hypertension Neurological: No 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 oz. kg; 36.00 BMI Method:Stated General Appearance: WD/WN, other (LOOKS UNCOMFORTABLE, PACING. ) Respiratory: normal breath sounds, no respiratory distress, no accessory muscle use Cardiovascular: regular rate, rhythm, no murmur Gastrointestinal: soft, tenderness (DIFFUSE EPIGASTRIC, RUQ AND RIGHT MID ABDOMEN TENDERNESS AND RIGHT FLANK TENDERNESS. 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, no motor/sensory deficits, alert, oriented x 3 Skin: normal color, warm/dry; No rash Progress/Results/Core Measures Results/Orders Lab Results Laboratory Tests Test 03/18/22 08:09 03/18/22 10:14 Range/Units White Blood Count 6.0 4.3-11.0 10^3/uL Red Blood Count 4.84 3.80-5.11 10^6/uL Hemoglobin 13.1 11.5-16.0 g/dL Hematocrit 41 35-52 % Mean Corpuscular Volume 85 80-99 fL Mean Corpuscular Hemoglobin 27 25-34 pg Mean Corpuscular Hemoglobin Concent 32 32-36 g/dL Red Cell Distribution Width 13.1 10.0-14.5 % Platelet Count 173 130-400 10^3/uL Mean Platelet Volume 12.7 H 9.0-12.2 fL Immature Granulocyte % (Auto) 0 % Neutrophils (%) (Auto) 60 42-75 % Lymphocytes (%) (Auto) 29 12-44 % Monocytes (%) (Auto) 8 0-12 % Eosinophils (%) (Auto) 2 0-10 % Basophils (%) (Auto) 1 0-10 % Neutrophils # (Auto) 3.6 1.8-7.8 10^3/uL Lymphocytes # (Auto) 1.8 1.0-4.0 10^3/uL Monocytes # (Auto) 0.5 0.0-1.0 10^3/uL Eosinophils # (Auto) 0.1 0.0-0.3 10^3/uL Basophils # (Auto) 0.0 0.0-0.1 10^3/uL Immature Granulocyte # (Auto) 0.0 0.0-0.1 10^3/uL Percent Immature Platelet Fraction 18.9 H 0.0-7.6 % Sodium Level 142 135-145 MMOL/L Potassium Level 4.6 3.6-5.0 MMOL/L Chloride Level 105 98-107 MMOL/L Carbon Dioxide Level 24 21-32 MMOL/L Anion Gap 13 5-14 MMOL/L Blood Urea Nitrogen 15 7-18 MG/DL Creatinine 0.88 0.60-1.30 MG/DL Estimat Glomerular Filtration Rate 75 BUN/Creatinine Ratio 17 Glucose Level 125 H 70-105 MG/DL Calcium Level 10.1 8.5-10.1 MG/DL Corrected Calcium 8.5-10.1 MG/DL Total Bilirubin 0.6 0.1-1.0 MG/DL Aspartate Amino Transf (AST/SGOT) 19 5-34 U/L Alanine Aminotransferase (ALT/SGPT) 23 0-55 U/L Alkaline Phosphatase 66 40-136 U/L Total Protein 7.6 6.4-8.2 GM/DL Albumin 4.7 H 3.2-4.5 GM/DL Amylase Level 52 25-125 U/L Lipase 25 8-78 U/L Smear Scan YES Urine Color YELLOW Urine Clarity CLEAR Urine pH 5.0 5-9 Urine Specific Arnett 1.020 1.016-1.022 Urine Protein TRACE H NEGATIVE Urine Glucose (UA) 2+ H NEGATIVE Urine Ketones NEGATIVE NEGATIVE Urine Nitrite POSITIVE H NEGATIVE Urine Bilirubin NEGATIVE NEGATIVE Urine Urobilinogen 1.0 < = 1.0 MG/DL Urine Leukocyte Esterase NEGATIVE NEGATIVE Urine RBC (Auto) NEGATIVE NEGATIVE Urine RBC NONE /HPF Urine WBC NONE /HPF Urine Squamous Epithelial Cells 5-10 /HPF Urine Crystals PRESENT H /LPF Urine Bacteria FEW H /HPF Urine Casts NONE /LPF Urine Mucus NEGATIVE /LPF Urine Culture Indicated YES My Orders Orders - MARYLU RODARTE DO Ed Iv/Invasive Line Start (03/18/22 08:11) Monitor-Rhythm Ecg Trace Only (03/18/22 08:11) Amylase (03/18/22 08:11) Cbc With Automated Diff (03/18/22 08:11) Comprehensive Metabolic Panel (03/18/22 08:11) Lipase (03/18/22 08:11) Ua Culture If Indicated (03/18/22 08:11) Ondansetron Injection (Zofran Injectio (03/18/22 08:30) Ed Iv/Invasive Line Start (03/18/22 08:18) Lactated Ringers (Lr 1000 Ml Iv Solution (03/18/22 08:30) Ketorolac Injection (Toradol Injection) (03/18/22 08:18) Us Abdomen Complete 41399 (03/18/22 08:24) Fentanyl Inj (Sublimaze Injection) (03/18/22 09:20) Orphenadrine Inj (Ed Only) (Norflex Inje (03/18/22 09:20) Fentanyl Inj (Sublimaze Injection) (03/18/22 10:15) Ct Abdomen/Pelvis W Wo (03/18/22 10:23) Iohexol Injection (Omnipaque 350 Mg/Ml 1 (03/18/22 10:30) Received Contrast (Hold Metformin- Contr (03/18/22 10:30) Ns (Ivpb) (Sodium Chloride 0.9% Ivpb Bag (03/18/22 10:30) Sodium Chloride Flush (Catheter Flush Sy (03/18/22 10:30) Urine Culture (03/18/22 10:14) Fentanyl Inj (Sublimaze Injection) (03/18/22 11:00) Hepatobiliary With Ejection Fr (03/18/22 11:51) Lidocaine 4% Patch (Salonpas 4% Patch) (03/19/22 09:00) Lidocaine 4% Patch (Salonpas 4% Patch) (03/19/22 09:00) Fentanyl Inj (Sublimaze Injection) (03/18/22 17:00) Oxycodone/Apap 5/325mg Tablet (Percocet (03/18/22 17:15) Medications Given in ED Current Medications Medications Dose Ordered Sig/Maggie Route Start Time Stop Time Status Last Admin Dose Admin Fentanyl Citrate 50 mcg ONCE ONCE IVP 03/18/22 10:15 03/18/22 10:16 DC 03/18/22 10:23 50 MCG Fentanyl Citrate 50 mcg ONCE ONCE IVP 03/18/22 11:00 03/18/22 11:01 DC 03/18/22 11:06 50 MCG Iohexol 100 ml ONCE ONCE IV 03/18/22 10:30 03/18/22 10:31 DC 03/18/22 10:33 100 ML Lactated Ringer's 1,000 ml @ 0 mls/hr Q0M ONCE IV 03/18/22 08:30 03/18/22 08:31 DC 03/18/22 08:27 0 MLS/HR Ondansetron HCl 4 mg ONCE ONCE IVP 03/18/22 08:30 03/18/22 08:31 DC 03/18/22 08:31 4 MG Sodium Chloride 10 ml NEEDED PRN IV 03/18/22 10:30 03/18/22 10:33 10 ML Sodium Chloride 100 ml ONCE ONCE IV 03/18/22 10:30 03/18/22 10:31 DC 03/18/22 10:33 80 ML Vital Signs/I&O 03/18/22 08:00 Temp 36.4 Pulse 81 Resp 16 B/P (MAP) 148/89 (108) Pulse Ox 97 Blood Pressure Mean: 108 Progress Progress Note : Progress Note GIVEN IV FLUIDS, TORADOL AND ZOFRAN Departure Impression Primary Impression: RUQ AND RIGHT FLANK PAIN Additional Impression: POSSIBLE EARLY SHINGLES Disposition: 01 HOME, SELF-CARE Condition: Stable Departure-Patient Inst. Decision time for Depature: 17:13 Referrals: NO,LOCAL PHYSICIAN (PCP) Primary Care Physician DEMETRIUS GUTIÉRREZ APRN (Family) Primary Care Physician GERRI CHOPRA MD Patient Instructions: Flank Pain (DC), Shingles (DC) Add. Discharge Instructions: FOLLOW UP WITH YOUR PCP IN 2-3 DAYS FOR FURTHER CARE, RETURN TO ER IF WORSE All discharge instructions reviewed with patient and/or family. Voiced understanding. Scripts Ketorolac Tromethamine (Ketorolac Tromethamine) 10 Mg Tablet 10 MG PO Q6H for Pain, #15 TAB Prov: MARYLU RODARTE DO 03/18/22 Oxycodone HCl/Acetaminophen (Oxycodone-Acetaminophen 5-325) 5 Mg-325 Mg Tablet 1 EACH PO Q4H PRN for PAIN-MODERATE MDD 6 for 3 Days, #20 TAB 0 Refills Prov: MARYLU RODARTE DO 03/18/22 Valacyclovir HCl (Valtrex) 1,000 Mg Tablet 1000 MG PO TIDAC, #30 TAB Prov: MARYLU RODARTE DO 03/18/22 Ondansetron (Ondansetron Odt) 4 Mg Tab.rapdis 4 MG PO Q4H for Nausea/Vomiting, #10 TAB Prov: MARYLU RODARTE DO 03/18/22 MARYLU RODARTE DO March 18, 2022 08:30
[2022-03-18 08:31] LABS: GLUCOSE 125 MG/DL (70-105)
[2022-03-18 08:32] LABS: TOTAL PROTEIN 7.6 GM/DL (6.4-8.2)
[2022-03-18 08:33] LABS: BILIRUBIN,TOTAL 0.6 MG/DL (0.1-1.0); CARBON DIOXIDE 24 MMOL/L (21-32)
[2022-03-18 08:35] LABS: ALKALINE PHOSPHATASE 66 U/L (40-136); CREATININE SERUM 0.88 MG/DL (0.60-1.30); GFR ESTIMATED 75
[2022-03-18 08:36] LABS: BUN/CREATININE RATIO 17
[2022-03-18 08:38] LABS: ALANINE AMINOTRANSFERASE 23 U/L (0-55)
[2022-03-18 08:39] LABS: LIPASE 25 U/L (8-78)
[2022-03-18] MEDS ORDERED: fentaNYL INJ 100 MCG/2 ML AMP IVP STA (09:20)
[2022-03-18] MEDS ORDERED: ORPHENADRINE 60 MG/2 ML (NORFLEX) AMP (ED ONLY) IV STA (09:20)
[2022-03-18] MEDS ORDERED: fentaNYL INJ 100 MCG/2 ML AMP IVP ONE ×2 (10:15→11:00)
[2022-03-18] MEDS ORDERED: NS 100 ML (IVPB) BAG IV ONE (10:30)
[2022-03-18] MEDS ORDERED: CATHETER FLUSH 10 ML SYR IV PRN (10:30)
[2022-03-18] MEDS ORDERED: HOLD METFORMIN - RECEIVED CONTRAST 20 ML VIAL IV SCH (10:30)
[2022-03-18] MEDS ORDERED: IOHEXOL 350 MG/ML 100 ML (OMNIPAQUE 350) VIAL IV ONE (10:30)
--- NOTE | 2022-03-18 10:31 | Diagnostic Imaging Report ---
PROCEDURE: Ultrasound abdomen complete. TECHNIQUE: Multiple real-time grayscale images were obtained of the abdomen in various projections. INDICATION: Right upper quadrant pain. Study compared with ultrasound 07/27/2019 as well as correlative CT from 03/17/2022. FINDINGS: There is echodense liver consistent with its fatty infiltration. No focal liver pathology. The bile ducts are nondilated and the portal vein is in the normal hepatopetal directional flow. The gallbladder itself appeared normal. The pancreas was largely obscured by gas. The nonfocal spleen normal in size at 8 cm. The aorta is nonaneurysmal and IVC unremarkable. The right kidney is 13.1 cm and left 12.1 cm. Some dilatation of the renal pelves bilaterally present without greg calyceal distention. This appearance is unchanged from earlier CT. Punctate left lower pole renal calculus present at CT is not appreciable at this exam. There is no ascites. IMPRESSION: Probable mild hepatic steatosis. No acute biliary pathology. Negative gallbladder. Mild prominence of the bilateral renal pelves without greg hydronephrosis. Known left renal calculus appreciable at CT cannot be visualized at this exam. Dictated by: Dictated on workstation # [id number]
[2022-03-18 10:33] LABS: BILIRUBIN,URINE NEGATIVE (NEGATIVE); CLARITY,URINE CLEAR; COLOR,URINE YELLOW; GLUCOSE, URINE (UA) 2+ (NEGATIVE); KETONES,URINE NEGATIVE (NEGATIVE); LEUKOCYTE ESTERASE ,URINE NEGATIVE (NEGATIVE); NITRITE,URINE POSITIVE (NEGATIVE); PROTEIN,URINE TRACE (NEGATIVE)
[2022-03-18 10:43] LABS: BACTERIA,URINE FEW /HPF
--- NOTE | 2022-03-18 11:49 | Diagnostic Imaging Report ---
PROCEDURE: CT abdomen and pelvis with and without contrast. TECHNIQUE: Precontrast acquisitions were acquired through the abdomen and pelvis. Multiple contiguous axial images were obtained through the abdomen and pelvis after the administration of intravenous contrast. Auto Exposure Controls were utilized during the CT exam to meet ALARA standards for radiation dose reduction. INDICATION: Right-sided pain. FINDINGS: The CT abdomen/pelvis exam performed on 03/17/2022 noted that both renal pelves seem prominent but that there was no obstructive calculus or mass identified. On the pre intravenous contrast series of this exam, both renal pelvis do remain prominent. The ultrasound exam performed prior to the study failed to show any significant hydronephrosis of the kidneys, and I suspect that the renal pelves are either secondary to extrarenal pelves, a developmental variant or less likely ureteropelvic junction deformities. The images through the low pelvis do show a tiny calcification along the path of the right ureter (image [id number]/192). Following administration of intravenous contrast, the right ureter was partially opacified. On the delayed images through the pelvis, the calcification in question seems to lie outside the ureter. There is no sign of obstructive calculus. The nonobstructive calculus within the left kidney seen previously is again evident and no different. There is no acute abnormality of the abdomen or pelvis noted otherwise. The lung bases are clear. The bone windows show no evidence for a fracture or for a destructive lesion. IMPRESSION: 1. The tiny calculus along the path of the distal right ureter seen on the previous study appears to be extraneous to the ureter. There is no sign of an obstructive calculus. 2. The prominence of the renal pelves may well be secondary to an extrarenal pelvis (a normal variant) as opposed to a long-standing UPJ deformity. 3. There is no acute abnormality of the abdomen and pelvis noted otherwise. 4. These results were discussed with Dr. Yvonne Payton and Dr. Mohit Garcia. Dictated by: Dictated on workstation # [id number]
--- NOTE | 2022-03-18 16:59 | Diagnostic Imaging Report ---
RADIOPHARMACEUTICAL: 5.37 mCi Tc-99m Choletec IV. INDICATION: Right upper quadrant pain. COMPARISON: Imaging from the same date. TECHNIQUE: Anterior dynamic imaging for 1 hour. Additional 60 minutes of imaging was performed after the patient ingested an 8 ounce can of Ensure Plus. FINDINGS: There is homogenous uptake throughout the liver. The gallbladder is visualized at 20 minutes and small bowel at 15 minutes. After the patient ingested an 8 ounce can of Ensure Plus without experiencing abdominal pain, the gallbladder ejection fraction was calculated to be 40%, which is at the lower limits of normal. IMPRESSION: 1. Normal HIDA Scan without evidence of cystic or common duct obstruction. 2. Normal GBEF of 40%. This is at the lower limits of normal. Dictated by: Dictated on workstation # [id number]
[2022-03-18] MEDS ORDERED: fentaNYL INJ 100 MCG/2 ML AMP IVP PRN (17:00)
[2022-03-18] MEDS ORDERED: VALA10004 PO (17:15)
[2022-03-18] MEDS ORDERED: KETO10TA PO (17:15)
[2022-03-18] MEDS ORDERED: OXYC1TAB11 PO (17:15)
[2022-03-18] MEDS ORDERED: oxyCODONE/APAP 5/325MG (PERCOCET 5) TABLET PO ONE (17:15)
[2022-03-18] MEDS ORDERED: ONDA4TAB11 PO (17:15)
[2022-03-18 17:50] VITALS: BP 165/70
[2022-03-19] MEDS ORDERED: LIDOCAINE 4% (SALONPAS) PATCH TOP SCH ×2 (09:00)
== END 2022-03-18 17:50 | disposition home or self-care (01) ==
LOC: EDUNIT# 07:56 → ER 07:58
DX: R10.11 Right upper quadrant pain (principal); R10.13 Epigastric pain; G47.30 Sleep apnea, unspecified; Z99.89 Dependence on other enabling machines and devices; Z90.710 Acquired absence of both cervix and uterus; Z90.722 Acquired absence of ovaries, bilateral
CPT/HCPCS: 74178; 76700; 78227; 80053; 81000; 82150; 83690; 85025; 87088; A9537; 36415

== ENCOUNTER → 2022-03-27 | Outpatient (CLI) | payer OTHER ==
[~2022-03-27] MED LIST changes: +KETO10TA PO; +ONDA4TAB11 PO; +OXYC1TAB11 PO; +VALA10004 PO
--- NOTE | 2022-03-27 16:24 | Diagnostic Imaging Report ---
INDICATION: Abdominal pain and constipation. COMPARISON: None FINDINGS: Multiple supine radiographic views of the abdomen were obtained. Small bowel loops are nondistended. There is no large collection of free intraperitoneal air. Extraosseous calcification is noted projecting over the left renal fossa and is felt to correspond to renal calculus seen on recent CT abdomen and pelvis. No other unexpected extraosseous calcifications or radiopaque foreign bodies are seen. Osseous structures show age-related degenerative changes. IMPRESSION: 1. Nonobstructed small bowel gas pattern. 2. Probable left renal calculus. Dictated by: Dictated on workstation # [id number]
== END ==
LOC: RAD FS 15:58
PROVIDERS: ATTEND Nurse Practitioner Family
DX: K59.00 Constipation, unspecified (principal); Z87.19 Personal history of other diseases of the digestive system
CPT/HCPCS: 74018

== ENCOUNTER → 2023-01-01 | Outpatient (CLI) | payer BC, OTHER ==
--- NOTE | 2023-01-01 16:31 | Diagnostic Imaging Report ---
INDICATION: Right shoulder pain 3 views of the right shoulder show no acute fracture or dislocation. Glenohumeral joint is unremarkable. There are small osteophytes forming at the acromioclavicular joint. IMPRESSION: Minimal degenerative changes of the right acromioclavicular joint. Dictated by: Dictated on workstation # [id number]
== END ==
LOC: RAD FS 09:14
PROVIDERS: ATTEND Nurse Practitioner Family
DX: M25.511 Pain in right shoulder (principal); G89.29 Other chronic pain
CPT/HCPCS: 73030

== ENCOUNTER 2023-09-01 08:30 | Outpatient (RCR) | payer BC, OTHER | END 2023-09-07 | disposition home or self-care (01) | PROVIDERS: ATTEND Neurological Surgery | DX: M53.3 Sacrococcygeal disorders, not elsewhere classified (principal); E11.9 Type 2 diabetes mellitus without complications; I10 Essential (primary) hypertension ==

== ENCOUNTER 2023-09-15 05:34 | Outpatient (CLI) | payer BC, OTHER ==
[~2023-09-15] VITALS: Ht 162.6 cm; Wt 93.2 kg
[2023-09-15] MEDS ORDERED: ESTR0.62 PO (09:41)
[2023-09-15] MEDS ORDERED: DAPA5TAB PO (09:41)
[2023-09-15] MEDS ORDERED: GABA300S3 PO (09:41)
[2023-09-15] MEDS ORDERED: ASPI-999 PO (09:41)
[2023-09-15] MEDS ORDERED: CINN500C2 PO (09:41)
[2023-09-15] MEDS ORDERED: FEXO180T84 PO (09:41)
[2023-09-15] MEDS ORDERED: CHOL500050 PO (09:41)
[2023-09-15] MEDS ORDERED: DOCU100C37 PO (09:41)
== END 2023-09-15 09:49 | disposition home or self-care (01) ==
LOC: PREOP 05:34
PROVIDERS: ATTEND Surgery
DX: Z01.818 Encounter for other preprocedural examination (principal)

== ENCOUNTER 2023-09-22 10:31 | Day surgery (SDC) | payer BC, OTHER ==
--- NOTE | 2023-09-13 20:43 | HISTORY AND PHYSICAL ---
DATE OF SERVICE: 09/22/2023 ATTENDING PRIMARY CARE PHYSICIAN: Jessica Escobar APRN INDICATION: The patient is a 63-year-old female who was referred over to us for a colonoscopy. She reports that she had a colonoscopy in 2019 where she was found to have a hyperplastic polyp of the hepatic flexure as well as a tubular adenoma in the transverse colon. She then underwent a followup colonoscopy in 2020 where she once again was found to have a polyp of the transverse colon as well as a sigmoid colon, which were both hyperplastic polyps. She was also found to have a sigmoid diverticulosis. She denies any family history of any colon cancer as well as no blood in her stool. She also denies any abdominal pain as well as no diarrhea or constipation. MEDICAL HISTORY: Hypercholesterolemia, type 2 diabetes mellitus, neuropathy, gastroesophageal reflux disease, hypertension, asthma, obstructive sleep apnea, colon polyps. SURGICAL HISTORY: section x3 in 1981, 1988 and 1995, total abdominal hysterectomy and bilateral salpingo-oophorectomy in 1998, bilateral carpal tunnel release, bilateral thumb arthroplasty, left total knee replacement 04/2020, C5-C6 cervical fusion 01/2023, L1-L5 lumbar laminectomy and L3-L4 fusion. ALLERGIES: MORPHINE. MEDICATIONS: Vitamin D3 125 mcg daily, vitamin B12 1000 mcg daily, docusate sodium 100 mg b.i.d., cinnamon 500 mg 2 tablets daily, aspirin 81 mg daily, [place] 180 mg daily, Zofran 4 mg q.8 hours p.r.n., gabapentin 300 mg b.i.d., metformin ER 500 mg 1 tablet in the morning and 2 in the evening, spironolactone 50 mcg daily, Flovent HFA 110 mcg 2 puffs b.i.d., lansoprazole 15 mg 1-2 capsules b.i.d., cyclobenzaprine 10 mg at bedtime, dexamethasone 6 mg, atorvastatin 40 mg daily, Farxiga 5 mg daily. Premarin 0.625 mg cream 3 times a week, Carafate 1 gram b.i.d. p.r.n. SOCIAL HISTORY: Negative for tobacco, smoker, for alcohol. FAMILY HISTORY: Father, diabetes mellitus, hypertension, lung cancer. Paternal grandfather, diabetes mellitus, hypertension. Paternal grandmother, diabetes mellitus, hypertension, breast cancer. Maternal grandmother, diabetes. Maternal grandfather, diabetes. Siblings, hypertension, myocardial infarction. VITAL SIGNS: Blood pressure is 138/80. Current weight is [ ] at 5 feet 4 inches. REVIEW OF SYSTEMS: Well-nourished female in no acute distress. She is not experiencing any shortness of breath or difficulty breathing. No chest pain, palpitations or diaphoresis. No nausea, vomiting or abdominal pain. No diarrhea or constipation. No red blood per rectum. No dark tarry stools. No fever or chills. No recent inadvertent weight loss. All other review of systems negative. PHYSICAL EXAM: Chest: Clear. Good breath sounds bilaterally. Heart: Regular, no murmurs. Extremities: No lower extremity edema. Negative Homans sign. HEENT: No scleral icterus. No cervical lymphadenopathy. Abdomen: Soft, nontender, nondistended. Skin: Warm, dry and pink. Neurologic: Awake, alert and oriented x3. ASSESSMENT AND PLAN: A 63-year-old female with a history of colon polyps. She does have a history of hyperplastic as well as tubular adenoma. At this time, we will proceed with scheduling her for a screening colonoscopy. Job ID: [id number] DocumentID: [id number] Dictated Date: 09/13/2023 15:41:30 Nondestructive Tester Date: 09/13/2023 20:41:00 Dictated By: RACHELE LUNDY APRN
[~2023-09-22] VITALS: Ht 162.6 cm; Wt 93.2 kg
[~2023-09-22 10:31] MED LIST changes: +ASPI-999 PO; +CHOL500050 PO; +CINN500C2 PO; +DAPA5TAB PO; +DOCU100C37 PO; +ESTR0.62 PO; +FEXO180T84 PO; +GABA300S3 PO
[2023-09-22] MEDS ORDERED: LACTATED RINGERS 1,000 ML 1,000 ML IV STA (10:38)
[2023-09-22] MEDS ORDERED: LIDOCAINE JELLY 2% 6 ML SYRINGE MM PRN (10:45)
--- NOTE | 2023-09-22 10:54 | Progress Note-Pre Operative ---
Pre-Operative Progress Note Date of Available H&P: Sep 22, 2023 Date H&P Reviewed: Sep 22, 2023 Time H&P Reviewed: 10:30 History & Physical: No changes noted Pre-Operative Diagnosis: screening, hx of polyp TONA MEEKS MD Sep 22, 2023 10:54
--- NOTE | 2023-09-22 10:58 | Discharge Inst-Surgical ---
D/C Lap Instructions-CONSTANTINO Follow Up Activity as tolerated High Fiber Diet 25g or more per day Avoid Alcohol, Caffeine, Spicy [place] and Acid foods. Drink 64 fluid oz or more of fluids per day. Symptoms to Report: Fever over 101 degree F, Nausea/Vomiting If any problems/questions: Contact your physician or go to Emergency Room TONA MEEKS MD Sep 22, 2023 10:57
[2023-09-22] MEDS ORDERED: ONDANSETRON 4 MG ORAL DISSOLVE TABLET PO PRN (11:00)
[2023-09-22] MEDS ORDERED: ONDANSETRON INJECTION 4 MG/2 ML (SDV) IVP PRN (11:00)
[2023-09-22 11:05] VITALS: BP 148/107
[2023-09-22] MEDS ORDERED: MIDAZOLAM INJ 2 MG/2 ML VIAL ONE (11:28)
[2023-09-22] MEDS ORDERED: LIDOCAINE JELLY 2% 6 ML SYRINGE ONE (11:38)
[2023-09-22] MEDS ORDERED: proPOfol INJECTION 200 MG/20 ML VIAL IV ONE (12:15)
[2023-09-22 12:30] VITALS: BP 125/66
--- NOTE | 2023-09-22 12:34 | Anesthesia-General Post-Op ---
MAC Patient Condition Mental Status/LOC: Same as Preop Cardiovascular: Satisfactory Nausea/Vomiting: Absent Respiratory: Satisfactory Pain: Controlled Complications: Absent Post Op Complications Complications None Follow Up Care/Instructions Patient Instructions None needed. Anesthesiology Discharge Order Discharge Order Patient is doing well, no complaints, stable vital signs, no apparent adverse anesthesia problems. No complications reported per nursing. ARABELLA KIRK CRNA Sep 22, 2023 12:34
[2023-09-22 12:35] VITALS: BP 112/56
--- NOTE | 2023-09-22 12:50 | Progress Note-Post Operative ---
Post-Operative Progess Note Surgeon (s)/Torch Straightener And Heater (s) Surgeon TONA MEEKS MD Torch Straightener And Heater: none Pre-Operative Diagnosis screening, hx of polyp Post-Operative Diagnosis chronic stage 2 ext and int hemorrhoids, pedunculated polyp asc colon(5mm) Procedure & Operative Findings Date of Procedure 09/22/23 Procedure Performed/Findings colonoscopy with snare polypectomy Anesthesia Type mac Estimated Blood Loss Estimated blood loss (mL): minimal Specimens/Packing Specimens Removed asc colon polyp TONA MEEKS MD Sep 22, 2023 12:50
[2023-09-22 13:50] VITALS: BP 112/56
--- NOTE | 2023-09-22 20:19 | OPERATIVE REPORT ---
DATE OF SERVICE: 09/22/2023 ATTENDING PRIMARY ADMINISTRATION CLERK: Jessica Escobar APRN. PREOPERATIVE DIAGNOSIS: History of colon polyps. POSTOPERATIVE DIAGNOSES: Chronic stage II, external and internal hemorrhoids, pedunculated polyp of the ascending colon 3-5 mm in size. PROCEDURE: Colonoscopy with snare polypectomy. SURGEON: Tona Meeks M.D. ANESTHESIA: Monitored anesthesia care. ESTIMATED BLOOD LOSS: Minimal. FINDINGS: Chronic stage II, external and internal hemorrhoids, pedunculated polyp of the ascending colon 3-5 mm in size. DISPOSITION: The patient tolerated the procedure well. INDICATIONS: The patient is a 63-year-old female referred over to us for screening colonoscopy. Her last one was done in 2019 and she was found to have a hyperplastic polyp of the hepatic flexure as well as a tubular adenoma of the transverse colon. She then underwent a followup colonoscopy in 2000 and was again found to have a polyp of the transverse colon and sigmoid colon, both benign hyperplastic polyps. Due to her history of polyps. It was recommended that she proceed with followup colonoscopies approximately every 3 years. She states that she is otherwise doing well, and does not report any major issues with diarrhea, nor constipation as well as no red blood per rectum, nor any dark tarry stools. She also does not report any family history of colon cancer. DESCRIPTION OF PROCEDURE: The patient was brought to the endoscopy suite and laid in the left lateral decubitus position. After adequate IV pain and sedative medications and monitored anesthesia care, a digital rectal examination was performed. Chronic stage II, external and internal hemorrhoids were identified, not actively edematous nor inflamed and no bleeding. Normal sphincter tone was felt and there were no palpable masses. The endoscope was then intubated into the anus, rectum gently insufflated. The endoscope was then advanced through the valves of Drake of the rectum with no polyps or any neoplasms identified. The endoscope was then advanced through the sigmoid colon where no diverticulosis identified. We then proceeded through the remainder of the descending, transverse and ascending colon. At the level of the ascending colon, a pedunculated polyp approximately 3-5 mm was identified and this was snared and cauterized at the base with visualization of good hemostasis. The endoscope was then advanced to the cecum, which was normal. The polyp was then retrieved by the end of the scope and slowly pulled out. No other lesions identified. The patient tolerated the procedure well. We will recommend continued medical management with a high-fiber diet with addition of a fiber supplement, which should equal or exceed 25 grams daily as well as significant amounts of water to promote soft consistency stools on a daily basis. Due to her history of multiple polyps, we will recommend a followup colonoscopy in approximately 3 years. Job ID: [id number] DocumentID: [id number] Dictated Date: 09/22/2023 12:34:19 Geotechnical Operating Engineer Date: 09/22/2023 20:17:00 Dictated By: TONA MEEKS MD
== END 2023-09-22 13:50 | disposition home or self-care (01) ==
LOC: ENDO 10:31
PROVIDERS: ATTEND Surgery
DX: Z12.11 Encounter for screening for malignant neoplasm of colon (principal); D12.2 Benign neoplasm of ascending colon; K64.1 Second degree hemorrhoids; K64.4 Residual hemorrhoidal skin tags; E66.9 Obesity, unspecified; Z68.35 Body mass index [BMI] 35.0-35.9, adult; G47.33 Obstructive sleep apnea (adult) (pediatric); E11.40 Type 2 diabetes mellitus with diabetic neuropathy, unspecified; Z79.84 Long term (current) use of oral hypoglycemic drugs
CPT/HCPCS: 82947; 88305

== ENCOUNTER → 2023-10-07 | Outpatient (RCR) | payer BC, OTHER | END | disposition home or self-care (01) | PROVIDERS: ATTEND Neurological Surgery | DX: M53.3 Sacrococcygeal disorders, not elsewhere classified (principal) ==